=== PATIENT | male | born 1990 | race Two or more races ===

== ENCOUNTER 2023-03-17 22:37 | Emergency (ER) | payer OTHER ==
[~2023-03-17] VITALS: Ht 162.6 cm; Wt 69.5 kg
[2023-03-17 22:53] VITALS: BP 120/90; PULSE 65; RESP 16; TEMP 97.9; O2SAT 98
[2023-03-17] MEDS ORDERED: IBUPROFEN 600 MG TAB PO ONE (23:10)
== END 2023-03-18 00:15 | disposition home or self-care (01) ==
LOC: MED 22:37
DX: S41.031A Puncture wound without foreign body of right shoulder, initial encounter (principal); X58.XXXA Exposure to other specified factors, initial encounter; Y93.89 Activity, other specified; Y92.89 Other specified places as the place of occurrence of the external cause; Y99.8 Other external cause status
CPT/HCPCS: 73030; 99283